=== PATIENT | male | born 1975 ===

== ENCOUNTER 2018-02-20 12:49 | Emergency (ER) | payer OTHER ==
[2018-02-20 13:02] VITALS: RESP 18; TEMP 97.6
[2018-02-20] MEDS ORDERED: Sodium Chloride 0.9% 1,000 ML IV STA (13:29)
[2018-02-20] MEDS ORDERED: Morphine 4 MG/ML VIAL ONE (13:37)
--- NOTE | 2018-02-20 13:41 | ED PDOC ---
HPI: Back Time Seen by Provider: 02/20/18 13:13 Chief Complaint (Nursing): Back Pain History Per: Patient Additional Complaint(s): Pt. states for the past month he's been having lower back pain. Reports 3 weeks ago he was evaluated by a chiropractor who performed adjustments on him without any relief. Two weeks ago he picked up a heavy object at work and pain became increasingly worse. This morning pain further worsened and he noticed that he had urinated on himself during the night time. He has been taking Motrin without relief. Also states 4-5 years ago he required epidural injections for his back pain which provided temporary pain relief. Denies hematuria, dysuria, trauma, abdominal pain, N/V/D, fever, stool incontinence. Past Medical History Reviewed: Historical Data, Nursing Documentation, Vital Signs Vital Signs: Last Vital Signs Temp 97.6 F 02/20/18 12:59 Pulse 68 02/20/18 12:59 Resp 18 02/20/18 12:59 BP 144/87 02/20/18 12:59 Pulse Ox 99 02/20/18 12:59 - Surgical History Surgical History: Cholecystectomy - Family History Family History: States: No Known Family Hx - Home Medications Home Medications: Ambulatory Orders Medication Instructions Recorded Cyclobenzaprine [Cyclobenzaprine 10 mg PO Q8 PRN #14 tab 02/20/18 HCl] Naproxen [Naprosyn] 500 mg PO BID PRN #14 tab 02/20/18 - Allergies Allergies/Adverse Reactions: Allergies Allergy/AdvReac Type Severity Reaction Status Date / Time No Known Allergies Allergy Verified 02/20/18 12:59 Review of Systems ROS Statement: Except As Marked, All Systems Reviewed And Found Negative Musculoskeletal: Positive for: Back Pain Physical Exam - Physical Exam Appears: Positive for: Well, In Acute Distress (severe painful distress) Skin: Positive for: Normal Color, Warm. Negative for: Rash Eye Exam: Positive for: Normal appearance Cardiovascular/Chest: Positive for: Regular Rate, Rhythm Respiratory: Positive for: Normal Breath Sounds. Negative for: Respiratory Distress Gastrointestinal/Abdominal: Positive for: Normal Exam, Soft. Negative for: Tenderness Back: Positive for: Normal Inspection, R CVA Tenderness, Vertebral Tenderness ( minimal lumbar), Decreased ROM. Negative for: L CVA Tenderness, Muscle Spasm Extremity: Positive for: Normal ROM Neurologic/Psych: Positive for: Alert, Oriented. Negative for: Aphasia, Facial Droop - Laboratory Results Result Diagrams: 02/20/18 13:45 02/20/18 13:45 - ECG O2 Sat by Pulse Oximetry: 99 - Progress ED Course And Treament: Case d/w Dr. Schreiber who recommends MRI of LS spine. Labs, toradol 30mg IV, morphine 4mg IV, MRI LS spine ordered. MRI: 1. A mild left paracentral to lateral disc herniation overlies a generalized disc bulge at L5-S1 impinging the descending left S1 nerve root and displacing intrathecal sacral nerve roots posteriorly. Moderate left renan canal stenosis results with the left lateral recess obliterated. Mild proximal left neural foraminal stenosis. Right lateral recess mildly stenosed. 2. A small right paracentral protrusion overlies generalized disc bulging at L4- 5 without generalized central stenosis. Lateral recess stenosis is mild, right greater than left. No neural foraminal stenosis. Case d/w Dr. Schreiber who agrees with care. Reports pain has improved but still present. Valium 10mg PO, lidoderm patch ordered. On re-evaluation, pt. reports complete pain relief. Gait steady unassisted. Disposition - Clinical Impression Clinical Impression: Lumbar radiculopathy - Patient ED Disposition Is Patient to be Admitted: No - Disposition Referrals: [facility] [Outside] [facility] [Outside] Disposition: Routine/Home Disposition Time: 14:00 Condition: IMPROVED Additional Instructions: Follow up with [facility] for further evaluation. Return to ED immediately if symptoms worsen. Prescriptions: Cyclobenzaprine [Cyclobenzaprine HCl] 10 mg PO Q8 PRN #14 tab PRN Reason: Muscle Spasm Naproxen [Naprosyn] 500 mg PO BID PRN #14 tab PRN Reason: Pain Instructions: Low Back Pain (DC), Radiculopathy (DC), Herniated Disc Exercises Forms: [facility] (Chinese), [facility] ED School/Work Excuse
[2018-02-20] MEDS ORDERED: Morphine 4 MG/ML VIAL IVP STA (13:54)
[2018-02-20 14:02] LABS: SQUAMOUS EPITHIAL 1 /hpf (0-5); URINE BILIRUBIN NEGATIVE (NEGATIVE); URINE BLOOD NEGATIVE (NEGATIVE); URINE CLARITY CLOUDY (Clear); URINE COLOR AMBER (YELLOW); URINE GLUCOSE (UA) NEG (Normal); URINE LEUKOCYTE ESTERASE NEG Leu/uL (Negative); URINE PROTEIN 30 mg/dL (NEGATIVE)
[2018-02-20 14:04] LABS: BASO # 0.1 K/uL (0.0-0.2); BASO % 0.5 % (0.0-2.0); EOS # 0.1 K/uL (0.0-0.7); HEMOGLOBIN 15.9 g/dL (12.0-18.0); LYMPH # 2.1 K/uL (1.0-4.3); LYMPH % 22.3 % (20.0-40.0); MEAN CELL VOLUME 90.3 fl (80.0-94.0); MEAN CORPUSCULAR HEMOGLOBIN 30.8 pg (27.0-31.0); MEAN CORPUSCULAR HGB CONC 34.1 g/dL (33.0-37.0); MEAN PLATELET VOLUME 9.4 fl (7.2-11.7); MONO # 0.8 K/uL (0.0-0.8); MONO % 8.4 % (0.0-10.0); NEUT # 6.5 K/uL (1.8-7.0); NEUT % 67.8 % (50.0-75.0); RBC 5.16 Mil/uL (4.40-5.90); RED CELL DISTRIBUTION WIDTH 13.2 % (11.5-14.5); WHITE BLOOD COUNT 9.5 K/uL (4.8-10.8)
[2018-02-20 14:22] LABS: ALB/GLOB RATIO 1.5 (1.0-2.1); ALBUMIN 4.6 g/dL (3.5-5.0); ALT/SGPT 80 U/L (21-72); AST/SGOT 48 U/L (17-59); BLOOD UREA NITROGEN 17 mg/dl (9-20); CALCIUM 9.7 mg/dL (8.4-10.2); GFR AFRICAN-AMERICAN > 60; GFR NON-AFRICAN AMERICAN > 60
--- NOTE | 2018-02-20 15:20 | MRI ---
PROCEDURE: MR LUMBAR SPINE WITHOUT CONTRAST HISTORY: low back pain with incontinence COMPARISON: CT Abdomen with contrast of 01/28/2014. TECHNIQUE: Multiecho multiplanar sequences were performed through the lumbar spine without the use of intravenous contrast. FINDINGS: Stable lumbar curvature remains normal. No fracture or spondylolisthesis. No suspicious matter signal changes are identified although the Modic type 1 endplate degenerative changes are are identified at L5-S1. A lower conus medullaris identified unremarkable in signal terminating at the upper L1 endplate. The vast majority conus is not captured this exam. Diffuse disc desiccation is seen at L4-5 and L5-S1 with adequate preservation of intervertebral disc height. Remaining intervertebral discs are adequately hydrated. Prevertebral and paraspinal soft tissues appear diffusely unremarkable. T12-L1: No disc herniation, spinal canal stenosis or neural foraminal narrowing. L1-2: No disc herniation, spinal canal stenosis or neural foraminal narrowing. L2-3: No disc herniation, spinal canal stenosis or neural foraminal narrowing. L3-4: No disc herniation, spinal canal stenosis or neural foraminal narrowing. [id number] facet degenerative changes are appreciated without consequence. L4-5: A small right paracentral disc protrusion is appreciated indenting the ventral thecal sac without causing significant central canal stenosis. An underlying generalized disc bulge is present. Facet arthropathy appears moderate but symmetric with limited lateral recess stenosis occurring through the combination of these findings. No neural foraminal stenosis bilaterally. L5-S1: A left paracentral/lateral disc herniation causes [id number] left renan canal stenosis obliterating the left lateral recess and impinges the descending left S1 nerve root and displaces descending left-sided nerve roots posteriorly within the thecal sac. Mild proximal left neural foraminal stenosis is identified. The right lateral recess is mildly stenosed. There is no right neural foraminal stenosis. OTHER FINDINGS: None. IMPRESSION: 1. A mild left paracentral to lateral disc herniation overlies a generalized disc bulge at L5-S1 impinging the descending left S1 nerve root and displacing intrathecal sacral nerve roots posteriorly. Moderate left renan canal stenosis results with the left lateral recess obliterated. Mild proximal left neural foraminal stenosis. Right lateral recess mildly stenosed. 2. A small right paracentral protrusion overlies generalized disc bulging at L4-5 without generalized central stenosis. Lateral recess stenosis is mild, right greater than left. No neural foraminal stenosis.
[2018-02-20] MEDS ORDERED: Lidocaine 5% Patch TD STA (15:34)
[2018-02-20] MEDS ORDERED: Lidocaine 5% Patch TD ONE (15:49)
[2018-02-20 17:19] VITALS: BP 133/80; PULSE 64
[2018-02-20 19:22] VITALS: O2SAT 99
== END 2018-02-20 17:19 | disposition home or self-care (01) ==
LOC: H.ER 12:49
DX: M51.16 Intervertebral disc disorders with radiculopathy, lumbar region (principal); M48.061 Spinal stenosis, lumbar region without neurogenic claudication
CPT/HCPCS: 72148; 80053; 81003; 85025; 87086; 96374; 96375; 99282; J1885; J2270; J7030

== ENCOUNTER 2018-05-20 18:02 | Emergency (ER) | payer OTHER ==
[2018-05-20 18:16] VITALS: BP 158/96; PULSE 73; RESP 16; TEMP 98.6; O2SAT 99
--- NOTE | 2018-05-20 18:28 | ED PDOC ---
HPI: Back Time Seen by Provider: 05/20/18 18:21 Chief Complaint (Nursing): Back Pain Chief Complaint (Provider): Back Pain History Per: Patient Onset/Duration Of Symptoms: Other (chronic) Additional Complaint(s): 42 year old male with a history of back pain and sciatica presents to the ED for evaluation of lower back pain radiating down his left leg. He reports taking Ibuprofen, Gabapentin, and Robaxin at home with minimal relief, prompting his visit today. Patient does note that tomorrow he has an appointment for an epidural injection with a card painter. He denies any bowel or bladder dysfunction. PMD: none Past Medical History Reviewed: Historical Data, Nursing Documentation, Vital Signs Vital Signs: Last Vital Signs Temp 98.6 F 05/20/18 18:15 Pulse 73 05/20/18 18:15 Resp 16 05/20/18 18:15 BP 158/96 H 05/20/18 18:15 Pulse Ox 99 05/20/18 18:15 - Medical History PMH: Back Problems (sciatica) - Surgical History Surgical History: Cholecystectomy - Family History Family History: States: No Known Family Hx - Living Arrangements Living Arrangements: With Family - Social History Current smoker - smoking cessation education provided: No Alcohol: Social Drugs: Denies - Home Medications Home Medications: Ambulatory Orders Medication Instructions Recorded Cyclobenzaprine [Cyclobenzaprine 10 mg PO Q8 PRN #14 tab 02/20/18 HCl] Naproxen [Naprosyn] 500 mg PO BID PRN #14 tab 02/20/18 Prednisone 50 mg PO DAILY #5 tablet 05/20/18 diaZEpam [Valium] 5 mg PO Q8 PRN #10 tab 05/20/18 - Allergies Allergies/Adverse Reactions: Allergies Allergy/AdvReac Type Severity Reaction Status Date / Time No Known Allergies Allergy Verified 02/20/18 12:59 Review of Systems ROS Statement: Except As Marked, All Systems Reviewed And Found Negative Genitourinary Male: Negative for: Dysuria, Frequency, Incontinence Musculoskeletal: Positive for: Back Pain (lower, radiating down left leg) Physical Exam - Reviewed Nursing Documentation Reviewed: Yes Vital Signs Reviewed: Yes - Physical Exam Appears: Positive for: Well, Non-toxic, Uncomfortable Head Exam: Positive for: NORMOCEPHALIC Skin: Positive for: Normal Color. Negative for: Rash Eye Exam: Positive for: Normal appearance Neck: Positive for: Normal Cardiovascular/Chest: Positive for: Regular Rate, Rhythm Respiratory: Positive for: Normal Breath Sounds. Negative for: Wheezing, Respiratory Distress Back: Positive for: Other (tenderness along lower lumbar region, straight leg raise is positive on left leg at 30 degrees) Extremity: Positive for: Normal ROM Neurologic/Psych: Positive for: Alert, Oriented (x3) - ECG O2 Sat by Pulse Oximetry: 99 (RA) Pulse Ox Interpretation: Normal Medical Decision Making Medical Decision Making: Time: 1823 Initial Impression: 42 year old male with back pain and sciatica. Patient is ambulatory with steady gait Initial Plan: --Toradol 30mg IM --Ultram 50mg PO --Valium 5mg PO Rx given for prednisone and tramadol. Patient has appt tomorrow for epidural injection. Scribe Attestation: Documented by Rayna Duncan, acting as a scribe for Nisha Vazquez PA-C Provider Scribe Attestation: All medical record entries made by the Scribe were at my direction and personally dictated by me. I have reviewed the chart and agree that the record accurately reflects my personal performance of the history, physical exam, medical decision making, and the department course for this patient. I have also personally directed, reviewed, and agree with the discharge instructions and disposition. Disposition - Clinical Impression Clinical Impression: Lumbar radiculopathy - Patient ED Disposition Is Patient to be Admitted: No Counseled Patient/Family Regarding: Diagnosis, Need For Followup, Rx Given - Disposition Referrals: [facility] [place] [Outside] Disposition: Routine/Home Disposition Time: 19:12 Condition: STABLE Additional Instructions: Take rx meds as directed. Follow up as scheduled tomorrow. Prescriptions: diaZEpam [Valium] 5 mg PO Q8 PRN #10 tab PRN Reason: Muscle Pain Prednisone 50 mg PO DAILY #5 tablet Instructions: Radiculopathy (DC), Sciatica Exercises, Back Exercises Forms: [employer] (Bermudian) Print Language: ANGOLAN
== END 2018-05-20 19:26 | disposition home or self-care (01) ==
LOC: H.ER 18:02
DX: M54.16 Radiculopathy, lumbar region (principal)
CPT/HCPCS: 96372; 99283; J1885